=== PATIENT | male | born 1975 | race African-American/Black ===

== ENCOUNTER 2017-08-02 18:47 | Emergency (ER) | payer MEDICAID ==
[~2017-08-02] VITALS: Ht 170.2 cm; Wt 88.0 kg
[2017-08-02] MEDS ORDERED: SODIUM CHLORIDE 0.9% 1,000 ML IV ONE (19:18)
[2017-08-02] MEDS ORDERED: MORPHINE SULFATE 10 MG/ML CPJ IV SCH (19:30)
[2017-08-02] MEDS ORDERED: ONDANSETRON HCL 4MG/2ML VIAL IV ONE (19:30)
[2017-08-02] MEDS ORDERED: LIDOCAINE HCL 1% 20ML VIAL (Pyxis) INJ MC ONE (19:30)
[2017-08-02] MEDS ORDERED: MORPHINE SULFATE 4 MG/ML CPJ (NOT FOR IM USE) IV ONE ×2 (19:30→21:30)
[2017-08-02 19:40] LABS: BASOPHILS % 0.5 % (0.0-2.0); EOSINOPHILS % 1.7 % (0.0-5.0); HEMATOCRIT. 42.9 % (42.0-52.0); HEMOGLOBIN. 14.4 g/dL (14.0-18.0); MEAN CORPUSCULAR HEMOGLOBIN 28.7 pg (28.0-32.0); MEAN CORPUSCULAR VOLUME 85.6 fL (80.0-94.0); MEAN PLATELET VOLUME 8.2 fl (7.4-10.4); NEUTROPHILS % 68.8 % (40.0-76.0); PLATELET 296 x1000/uL (130-400); RED CELL DISTRIBUTION WIDTH 15.2 % (11.6-14.6)
[2017-08-02 19:53] LABS: CARBON DIOXIDE 29 mEq/L (21-32); CHLORIDE 104 mEq/L (98-107); INR 1.1
[2017-08-02 21:50] VITALS: BP 163/133
[2017-08-02] MEDS ORDERED: MORPHINE SULFATE 10 MG/ML CPJ IV NR (22:00)
[2017-08-02] MEDS ORDERED: IOHEXOL-350 100 ML BOTTLE ONE (23:40)
== END 2017-08-03 00:25 | disposition left against medical advice (07) ==
LOC: ER 19:09
DX: S82.391B Other fracture of lower end of right tibia, initial encounter for open fracture type I or II (principal); S02.2XXA Fracture of nasal bones, initial encounter for closed fracture; S01.411A Laceration without foreign body of right cheek and temporomandibular area, initial encounter; F17.210 Nicotine dependence, cigarettes, uncomplicated; J45.909 Unspecified asthma, uncomplicated; X93.XXXA Assault by handgun discharge, initial encounter; Y93.89 Activity, other specified; Y92.512 Supermarket, store or market as the place of occurrence of the external cause
CPT/HCPCS: 12013; 36415; 70450; 70486; 72191; 73590; 73630; 73706; 80048; 85025; 85610; 96361; 96374; 96375; 96376; 99285; J2270; J2405; J3490; J7030; Q9967; Z7610

== ENCOUNTER 2017-08-08 19:18 | Emergency (ER) | payer MEDICAID ==
[~2017-08-08] VITALS: Ht 167.6 cm; Wt 80.0 kg
[2017-08-08 19:36] VITALS: BP 153/103
== END 2017-08-08 21:22 | disposition home or self-care (01) ==
LOC: ER 19:54
DX: Z48.02 Encounter for removal of sutures (principal); J45.909 Unspecified asthma, uncomplicated; F12.10 Cannabis abuse, uncomplicated; F17.200 Nicotine dependence, unspecified, uncomplicated
CPT/HCPCS: 99281; Z7610

== ENCOUNTER 2017-10-24 14:25 | Emergency (ER) | payer MEDICAID ==
[~2017-10-24] VITALS: Ht 172.7 cm; Wt 79.0 kg
[2017-10-24 16:54] VITALS: BP 166/113
== END 2017-10-24 21:16 | disposition left against medical advice (07) ==
LOC: ER 15:48
DX: R10.30 Lower abdominal pain, unspecified (principal); R11.2 Nausea with vomiting, unspecified; Z53.21 Procedure and treatment not carried out due to patient leaving prior to being seen by health care provider
CPT/HCPCS: 82962

== ENCOUNTER 2021-09-24 15:19 | Emergency (ER) | payer MEDICAID ==
[~2021-09-24] VITALS: Ht 175.3 cm; Wt 77.0 kg
[2021-09-24 15:31] VITALS: BP 189/118
[2021-09-24] MEDS ORDERED: ONDANSETRON 4MG ODT PO STA (15:40)
[2021-09-24 16:58] LABS: BASOPHILS % 0.5 % (0.0-2.0); EOSINOPHILS % 0.3 % (0.0-5.0); HEMATOCRIT. 51.4 % (42.0-52.0); HEMOGLOBIN. 16.8 g/dL (14.0-18.0); LYMPHOCYTES % 18.5 % (20.0-50.0); MEAN CORPUSCULAR HEMOGLOBIN 27.7 pg (28.0-32.0); MEAN CORPUSCULAR VOLUME 84.6 fL (80.0-94.0); MEAN PLATELET VOLUME 8.5 fl (7.4-10.4); MONOCYTES % 12.2 % (2.0-8.0); NEUTROPHILS % 68.5 % (40.0-76.0); PLATELET 226 x1000/uL (130-400); RED BLOOD CELL COUNT 6.08 mill/uL (4.7-6.1); RED CELL DISTRIBUTION WIDTH 14.2 % (11.6-14.6)
[2021-09-24 17:02] LABS: CHLORIDE 101 mEq/L (98-107)
== END 2021-09-24 21:30 | disposition left against medical advice (07) ==
LOC: ER 15:19
DX: R10.84 Generalized abdominal pain (principal)
CPT/HCPCS: 36415; 80053; 85025; 93005; 99284

== ENCOUNTER 2025-02-10 13:39 | Emergency (ER) | payer MEDICAID ==
[~2025-02-10] VITALS: Ht 167.6 cm; Wt 81.6 kg
[2025-02-10 13:44] VITALS: O2SAT 100
[2025-02-10 13:47] VITALS: BP 160/103; PULSE 74; RESP 14; TEMP 37.1; O2SAT 100
[2025-02-10] MEDS ORDERED: IBUP-2029 MT (15:05)
== END 2025-02-10 15:15 | disposition home or self-care (01) ==
LOC: ER 13:39
DX: S63.91XA Sprain of unspecified part of right wrist and hand, initial encounter (principal); F12.10 Cannabis abuse, uncomplicated; J45.909 Unspecified asthma, uncomplicated; I10 Essential (primary) hypertension; Y04.0XXA Assault by unarmed brawl or fight, initial encounter; Y93.89 Activity, other specified; Y92.89 Other specified places as the place of occurrence of the external cause; Y99.8 Other external cause status
CPT/HCPCS: 73130; 99283